=== PATIENT | female | born 1945 | race Caucasian/White ===

== ENCOUNTER 2022-10-22 05:33 | Observation (INO) | payer MEDICARE, OTHER ==
[2022-10-20 15:59] VITALS: BMI 25.0
[2022-10-22] MEDS ORDERED: Thrombin 5000 UNITS/5 ML VIAL ONE (06:12)
[2022-10-22] MEDS ORDERED: Vancomycin 1 GM VIAL ONE (06:12)
[2022-10-22] MEDS ORDERED: Neomycin-Polymyxin 1 ML AMP ONE (06:12)
[2022-10-22] MEDS ORDERED: Bupivacaine HCl 0.5%/Epinephrine 1:200,000/PF 30 ml Vial ONE (06:12)
[2022-10-22] MEDS ORDERED: Midazolam HCl 2 mg/2 ml Vial ONE (06:33)
[2022-10-22] MEDS ORDERED: Levofloxacin 500 mg/D5W 100 ml Premix Bag ONE (06:33)
[2022-10-22] MEDS ORDERED: Fentanyl 250 MCG/5 ML VIAL ONE (06:41)
[2022-10-22] MEDS ORDERED: Dexmedetomidine 200 MCG/2 ML VIAL ONE (06:41)
[2022-10-22] MEDS ORDERED: Albumin 5% 0 ML ONE (06:42)
[2022-10-22 06:44] LABS: #Eosinphils 0.1 thou/uL (0.0-0.7); #Lymphocytes 1.8 thou/uL (1.20-3.40); #Monocytes 0.5 thou/uL (0.11-0.59); #Neutrophils 3.1 thou/uL (1.40-6.50); %Basophils 0.9 % (0.0-1.0); %Eosinophils 2.4 % (0.0-10.0); %Monocytes 8.5 % (0.0-10.0); %Neutrophils 56.2 % (42.0-75.0); Hemoglobin 13.8 g/dL (12.0-16.0); Mean Corpuscular HGB CONC 32.7 g/dL (32.0-36.0); Mean Corpuscular Volume 94.8 fl (78.0-98.0); Mean Platelet Volume 9.3 fL (7.4-10.4); Platelet Count 186 10x3/uL (130-400); RBC Distribution Width 12.4 % (11.5-14.5); Red Blood Cell (RBC) Count 4.45 mill/uL (4.20-5.40); White Blood Cell (WBC) Count 5.6 10x3/uL (4.8-10.8)
[2022-10-22] MEDS ORDERED: Clindamycin/D5W 900 mg/50 ml Premix Bag ONE (06:54)
[2022-10-22 06:55] LABS: INR-International Normal Ratio 0.9; PTT 31.8 sec (22.9-36.1); Prothrombin Time 12.4 sec (12.0-14.7)
[2022-10-22 07:03] LABS: Anion Gap 15 mmol/L (10-20); BUN (Urea Nitrogen) 15 mg/dL (9.8-20.1); Calc. Creatinine Clearance 63 mL/min (70-130); Calcium 9.8 mg/dL (7.8-10.44); Carbon Dioxide 24 mmol/L (23-31); Chloride 104 mmol/L (98-107); Estimated GFR 76; Glucose 112 mg/dL (83-110); Potassium 4.4 mmol/L (3.5-5.1); Sodium 139 mmol/L (136-145)
[2022-10-22] MEDS ORDERED: Lidocaine 1% PF 5 ML VIAL ONE (07:16)
[2022-10-22] MEDS ORDERED: Rocuronium Bromide 10 MG/ML (10ML VIAL) ONE (07:16)
[2022-10-22] MEDS ORDERED: Dexamethasone 20 MG/5 ML VIAL ONE (07:16)
[2022-10-22] MEDS ORDERED: PROPOFOL 200 MG/20 ML VIAL ONE (07:16)
[2022-10-22] MEDS ORDERED: Ondansetron PF 4 MG/2 ML Vial ONE (07:16)
[2022-10-22] MEDS ORDERED: ePHEDrine 50 MG/ML VIAL ONE (07:16)
[2022-10-22] MEDS ORDERED: Milk Of Magnesia 30 ML UDCUP PO PRN (07:18)
[2022-10-22] MEDS ORDERED: Ondansetron PF 4 MG/2 ML Vial IVP PRN (07:18)
[2022-10-22] MEDS ORDERED: Acetaminophen/Codeine 30-300mg Tablet PO PRN (07:18)
[2022-10-22] MEDS ORDERED: Mag-Al 1200 mg/1200 mg/30 ML UDCUP PO PRN (07:18)
[2022-10-22] MEDS ORDERED: diphenhydrAMINE 50 MG/ML VIAL IVP PRN (07:18)
[2022-10-22] MEDS ORDERED: Acetaminophen 325 MG TAB PO PRN (07:18)
[2022-10-22] MEDS ORDERED: Morphine 2 MG/ML VIAL SLOW IVP PRN (07:18)
[2022-10-22] MEDS ORDERED: SUGAMMADEX SODIUM 200 MG/2 ML VIAL ONE (12:40)
[2022-10-22] MEDS ORDERED: Ondansetron HCl/PF 4 MG/2 ML Vial IVP PRN (12:59)
[2022-10-22] MEDS ORDERED: HYDROmorphone 2 MG/ML VIAL SLOW IVP PRN (12:59)
[2022-10-22] MEDS ORDERED: Morphine Sulfate 2 MG/ML SYRINGE SLOW IVP PRN (12:59)
[2022-10-22] MEDS ORDERED: Promethazine HCl 25 MG/ML VIAL IM PRN (12:59)
[2022-10-22] MEDS ORDERED: PACU-Morphine 4MG/ML VIAL SLOW IVP PRN (12:59)
[2022-10-22] MEDS ORDERED: HYDROmorphone 0.5 MG/0.5 ML SYRINGE ONE ×2 (13:03→13:11)
[2022-10-22] MEDS ORDERED: FENTANYL 50 MCG/ML 1 ML VIAL ONE (13:27)
[2022-10-22] MEDS: Clindamycin/D5W 900 MG in Premix Bag 1 BAG IVPB SCH ×2 (14:56→23:36)
[2022-10-22] MEDS: Sodium Chloride 0.9% 1,000 ML IV SCH ×2 (14:56→20:50)
[2022-10-22] MEDS: HYDROcodone/Acetaminophen 10/325 mg Tablet PO PRN (15:03)
[2022-10-22] MEDS: HYDROcodone/Acetaminophen 7.5/325 mg Tablet PO PRN (19:47)
[2022-10-22] MEDS: tiZANidine HCl 4 MG TAB PO PRN (19:48)
[2022-10-23] MEDS: HYDROcodone/Acetaminophen 7.5/325 mg Tablet PO PRN ×3 (00:36→20:59)
[2022-10-23] MEDS: Hydrochlorothiazide 25 MG TAB PO SCH (09:34)
[2022-10-23] MEDS: Atorvastatin Calcium 10 MG TAB PO SCH (09:34)
[2022-10-23] MEDS: Losartan 25 MG TAB PO SCH (09:36)
[2022-10-23] MEDS: Montelukast Sodium 10 mg Tablet PO SCH (09:36)
[2022-10-23] MEDS: tiZANidine HCl 4 MG TAB PO PRN ×2 (12:30→21:01)
[2022-10-23] MEDS: HYDROcodone/Acetaminophen 10/325 mg Tablet PO PRN ×2 (12:30→17:32)
[2022-10-23] MEDS: Sodium Chloride 0.9% 1,000 ML IV SCH (12:41)
[2022-10-23] MEDS ORDERED: Docusate 100 MG CAP PO SCH (21:00)
[2022-10-24] MEDS: HYDROcodone/Acetaminophen 10/325 mg Tablet PO PRN ×2 (01:39→05:30)
[2022-10-24] MEDS: Sodium Chloride 0.9% 1,000 ML IV SCH (04:03)
[2022-10-24] MEDS: tiZANidine HCl 4 MG TAB PO PRN (05:30)
[2022-10-24] MEDS ORDERED: Docusate 100 MG CAP PO SCH (09:00)
[2022-10-24] MEDS: HYDROcodone/Acetaminophen 7.5/325 mg Tablet PO PRN (10:14)
[2022-10-24] MEDS: Montelukast Sodium 10 mg Tablet PO SCH (10:15)
[2022-10-24] MEDS: Atorvastatin Calcium 10 MG TAB PO SCH (10:15)
[2022-10-24] MEDS: Hydrochlorothiazide 25 MG TAB PO SCH (10:16)
[2022-10-24] MEDS: Losartan 25 MG TAB PO SCH (10:17)
[2022-10-24 11:37] VITALS: BP 108/63; TEMP 98.3
== END 2022-10-24 13:02 | disposition home or self-care (01) ==
LOC: SDC 05:33 → SURG B 14:31
PROVIDERS: ADMIT Neurological Surgery; ATTEND Neurological Surgery
PROC: 01NB0ZZ Release Lumbar Nerve, Open Approach (ICD-10-PCS; principal; 2022-10-22)
PROC: 0SG30AJ Fusion of Lumbosacral Joint with Interbody Fusion Device, Posterior Approach, Anterior Column, Open Approach (ICD-10-PCS; 2022-10-22)
DX: M48.57XA Collapsed vertebra, not elsewhere classified, lumbosacral region, initial encounter for fracture (principal); M48.062 Spinal stenosis, lumbar region with neurogenic claudication; M54.16 Radiculopathy, lumbar region; M19.90 Unspecified osteoarthritis, unspecified site; I10 Essential (primary) hypertension; F17.210 Nicotine dependence, cigarettes, uncomplicated; Z79.899 Other long term (current) drug therapy; Z88.0 Allergy status to penicillin; Z91.041 Radiographic dye allergy status
CPT/HCPCS: 20930; 20936; 22633; 22840; 22853; 63047; 63048; 63052; 80048; 85025; 85610; 85730; 97110; 97116 ×3; 97530 ×2; C1713 ×3; C1768; C1776; C1889; J3010; J1100; J1170; J1956; J2250; J2272; J2405; J2704; J3370; J3490; J7050; P9045